=== PATIENT | male | born 1975 | race Caucasian/White ===

== ENCOUNTER 2016-09-07 18:43 | Emergency (ER) | payer OTHER ==
[~2016-09-07] VITALS: Ht 177.8 cm; Wt 84.1 kg
[2016-09-07 18:51] VITALS: BP 130/84; TEMP 96.3
[2016-09-07] MEDS ORDERED: CEPHALEXIN500 M1 PO (21:50)
[2016-09-07 22:04] VITALS: PULSE 60
== END 2016-09-07 22:05 | disposition home or self-care (01) ==
LOC: COL.ER 18:43
DX: S61.011A Laceration without foreign body of right thumb without damage to nail, initial encounter (principal); W26.0XXA Contact with knife, initial encounter; Y92.009 Unspecified place in unspecified non-institutional (private) residence as the place of occurrence of the external cause

== ENCOUNTER 2016-09-18 08:57 | Outpatient (RCR) | payer OTHER ==
[~2016-09-18 08:57] MED LIST: CEPHALEXIN500 M1 PO
== END 2016-11-16 13:30 ==
LOC: WSOH 08:57
DX: Z48.02 Encounter for removal of sutures (principal); S61.011D Laceration without foreign body of right thumb without damage to nail, subsequent encounter; W26.0XXD Contact with knife, subsequent encounter; Y99.0 Civilian activity done for income or pay